=== PATIENT | female | born 1965 | race Caucasian/White ===

== ENCOUNTER 2020-01-26 18:38 | Inpatient (IN) | payer MEDICAID, OTHER ==
[~2020-01-26] VITALS: Ht 165.1 cm; Wt 77.1 kg
[2020-01-26 20:36] LABS: CHLORIDE 91 mEq/L (98-107)
[2020-01-26] MEDS ORDERED: SODIUM CHLORIDE 0.9% 1,000 ML IV ONE (21:00)
[2020-01-26 21:07] LABS: BASOPHILS % 0.4 % (0.0-2.0); EOSINOPHILS % 0.1 % (0.0-5.0); HEMATOCRIT. 51.4 % (36.0-48.0); HEMOGLOBIN. 18.1 g/dL (12.0-16.0); LYMPHOCYTES % 12.3 % (20.0-50.0); MEAN CORPUSCULAR HEMOGLOBIN 30.1 pg (28.0-32.0); MEAN CORPUSCULAR VOLUME 85.4 fL (81.0-99.0); MEAN PLATELET VOLUME 9.3 fl (7.4-10.4); MONOCYTES % 8.3 % (2.0-8.0); NEUTROPHILS % 78.9 % (40.0-76.0); PLATELET 193 x1000/uL (130-400); RED BLOOD CELL COUNT 6.02 mill/uL (4.2-5.4); RED CELL DISTRIBUTION WIDTH 15.6 % (11.6-14.6)
[2020-01-26 21:11] LABS: BG BASE EXCESS -7.8 mmol/L (-2.0-2.0); BG CARBOXYHEMOGLOBIN 0.3 % (0.5-1.5); BG DEOXYHEMOGLOBIN 8.6 % (0.0-5.0); BG FRACTION INSPIRED OXYGEN 21; BG HCO3 ACT 14.6 mmol/L (22.0-26.0); BG METHEMOGLOBIN 0.4 % (0.0-1.5); BG OXYGEN SATURATION 91.3 % (92.0-98.5); BG OXYHEMOGLOBIN 90.7 % (94.0-97.0); BG PCO2 24.9 mmHg (35.0-45.0); BG PH 7.385 (7.350-7.450); BG SAMPLE SITE RIGHT RADIAL; BG TOTAL HEMOGLOBIN 19.8 g/dL (12.0-18.0); BG VENT MODE ROOM AIR
[2020-01-26] MEDS ORDERED: AZITHROMYCIN 500 MG in DEXT 5% WATER 250 ML IV ONE (21:45)
[2020-01-27] VITALS (7 sets, daily range): BP systolic 103–164; BP diastolic 63–116
[2020-01-27] MEDS ORDERED: AMLO10TA80 PO (00:51)
[2020-01-27] MEDS ORDERED: FERR-71 PO (00:51)
[2020-01-27] MEDS ORDERED: GABA-531 PO (00:51)
[2020-01-27] MEDS ORDERED: AXIT5TAB PO (00:51)
[2020-01-27] MEDS ORDERED: ESOM20CA PO (00:51)
[2020-01-27] MEDS ORDERED: IPRATROPIUM/ALBUTEROL 0.5-3(2.5)MG/3ML NEB NEB PRN (02:15)
[2020-01-27] MEDS ORDERED: MAGNESIUM/ALUMINUM HYDROXIDE/SIMETHICONE 30ML UDC PO PRN (02:15)
[2020-01-27] MEDS ORDERED: MORPHINE SULFATE 2 MG/ML CPJ (NOT FOR IM USE) IV PRN (02:15)
[2020-01-27] MEDS ORDERED: HYDROCODONE/APAP 7.5/325MG 1 TAB TABLET PO PRN (02:15)
[2020-01-27] MEDS ORDERED: NA PHOS,M-B/NA PHOS,DI-BA ENEMA 118ML PR PRN (02:15)
[2020-01-27] MEDS ORDERED: DOCUSATE SODIUM 100MG CAPSULE PO PRN (02:15)
[2020-01-27] MEDS ORDERED: ONDANSETRON HCL 4MG/2ML INJ IV PRN (02:15)
[2020-01-27] MEDS ORDERED: DIPHENHYDRAMINE 50MG/ML VIAL IV PRN (02:15)
[2020-01-27] MEDS ORDERED: LORAZEPAM 2MG/ML CPJ IV PRN (02:15)
[2020-01-27] MEDS ORDERED: GUAIFENESIN 200MG/10ML SUGAR FREE UDC PO PRN (02:15)
[2020-01-27 03:12] LABS: CHLORIDE 93 mEq/L (98-107)
[2020-01-27] MEDS: ASPIRIN 81MG EC TABLET PO SCH (08:23)
[2020-01-27] MEDS: ENOXAPARIN 30MG/0.3ML SYR SUBCUT SCH ×2 (08:23→20:43)
[2020-01-27] MEDS ORDERED: ALBUTEROL 6.7GM HFA INHALER ORI SCH ×2 (09:00)
[2020-01-27 09:13] LABS: BG BASE EXCESS -9.2 mmol/L (-2.0-2.0); BG CARBOXYHEMOGLOBIN 0.2 % (0.5-1.5); BG DEOXYHEMOGLOBIN 3.9 % (0.0-5.0); BG FRACTION INSPIRED OXYGEN 99.8; BG METHEMOGLOBIN 0.6 % (0.0-1.5); BG OXYGEN SATURATION 96.1 % (92.0-98.5); BG OXYHEMOGLOBIN 95.3 % (94.0-97.0); BG PH 7.369 (7.350-7.450); BG PO2 80.6 mmHg (75.0-100.0); BG SAMPLE SITE RIGHT RADIAL; BG TOTAL HEMOGLOBIN 20.7 g/dL (12.0-18.0); BG VENT MODE MASK - NRB
[2020-01-27 12:51] LABS: D-DIMER 0.94 mg/L FEU (<0.50); INR 1.1; PROTHROMBIN TIME 11.3 sec (9.6-11.0)
[2020-01-27] MEDS: AMLODIPINE 10MG TABLET PO SCH (13:00)
[2020-01-27] MEDS: AZITHROMYCIN 500 MG in DEXT 5% WATER 250 ML IV SCH (23:25)
[2020-01-28] VITALS (67 sets, daily range): BP systolic 40–178; BP diastolic 13–121
[2020-01-28 06:33] LABS: BG BASE EXCESS -22.4 mmol/L (-2.0-2.0); BG CARBOXYHEMOGLOBIN 0.2 % (0.5-1.5); BG DEOXYHEMOGLOBIN 8.3 % (0.0-5.0); BG FRACTION INSPIRED OXYGEN 100; BG METHEMOGLOBIN 0.5 % (0.0-1.5); BG OXYGEN SATURATION 91.6 % (92.0-98.5); BG PCO2 32.5 mmHg (35.0-45.0); BG PH 7.007 (7.350-7.450); BG PO2 79.7 mmHg (75.0-100.0); BG SAMPLE SITE RIGHT RADIAL; BG TOTAL HEMOGLOBIN 21.1 g/dL (12.0-18.0); BG VENT MODE MASK - NRB
[2020-01-28] MEDS ORDERED: PROPOFOL 10MG/ML 100ML 100 ML IV PRN (07:23)
[2020-01-28 07:41] LABS: BASOPHILS % 0.4 % (0.0-2.0); HEMATOCRIT. 54.1 % (36.0-48.0); HEMOGLOBIN. 17.7 g/dL (12.0-16.0); LYMPHOCYTES % 10.7 % (20.0-50.0); MEAN CORPUSCULAR HEMOGLOBIN 29.2 pg (28.0-32.0); MEAN PLATELET VOLUME 9.8 fl (7.4-10.4); MONOCYTES % 5.2 % (2.0-8.0); NEUTROPHILS % 83.7 % (40.0-76.0); PLATELET 319 x1000/uL (130-400); RED BLOOD CELL COUNT 6.08 mill/uL (4.2-5.4); RED CELL DISTRIBUTION WIDTH 16.4 % (11.6-14.6)
[2020-01-28 07:50] LABS: CHLORIDE 86 mEq/L (98-107)
[2020-01-28 07:58] LABS: HDL CHOLESTEROL 36 mg/dL (40-59); LDL CHOLESTEROL 118 mg/dL (5-100)
[2020-01-28] MEDS ORDERED: DEXTROSE 50% WATER 50ML SYRINGE IV NR (08:30)
[2020-01-28] MEDS ORDERED: SODIUM BICARBONATE 8.4% 1 MEQ/ML 50ML SYR IV NR ×3 (08:30→14:00)
[2020-01-28] MEDS ORDERED: INSULIN REGULAR (HUMULIN R) 300UNITS/3ML IV NR (08:32)
[2020-01-28] MEDS: AMLODIPINE 10MG TABLET PO SCH (08:56)
[2020-01-28] MEDS: NOREPINEPHRINE 8 MG in DEXT 5% WATER 242 ML IV PRN ×2 (08:58→13:45)
[2020-01-28] MEDS ORDERED: SODIUM CHLORIDE 3% 500 ML IV NR (09:00)
[2020-01-28] MEDS: ASPIRIN 81MG EC TABLET PO SCH (09:01)
[2020-01-28] MEDS: ENOXAPARIN 30MG/0.3ML SYR SUBCUT SCH (09:02)
[2020-01-28 09:30] LABS: BG BASE EXCESS -7.4 mmol/L (-2.0-2.0); BG CARBOXYHEMOGLOBIN 0.3 % (0.5-1.5); BG DEOXYHEMOGLOBIN 1.8 % (0.0-5.0); BG FRACTION INSPIRED OXYGEN 100; BG HCO3 ACT 19.3 mmol/L (22.0-26.0); BG METHEMOGLOBIN 0.5 % (0.0-1.5); BG OXYGEN SATURATION 98.2 % (92.0-98.5); BG OXYHEMOGLOBIN 97.4 % (94.0-97.0); BG PCO2 43.1 mmHg (35.0-45.0); BG PH 7.268 (7.350-7.450); BG PO2 130.7 mmHg (75.0-100.0); BG SAMPLE SITE RIGHT RADIAL; BG TIDAL VOLUME(mL) 500 mL; BG TOTAL HEMOGLOBIN 15.9 g/dL (12.0-18.0); BG VENT MODE VENT - A/C; BG VENT RATE 16 set
[2020-01-28] MEDS ORDERED: ENOXAPARIN 60MG/0.6ML SYR SUBCUT NR (09:45)
[2020-01-28 10:06] LABS: CLARITY URINE CLOUDY (CLEAR); COLOR URINE DARK YELLOW (YELLOW); KETONES URINE TRACE (NEGATIVE); LEUKOCYTE ESTERASE URINE TRACE (NEGATIVE); NITRITE URINE NEGATIVE (NEGATIVE); OCCULT BLOOD URINE 3+ (NEGATIVE); PROTEIN URINE 2+ (NEGATIVE); SPECIFIC GRAVITY URINE 1.019 (1.005-1.030)
[2020-01-28] MEDS: DEXAMETHASONE 10 MG/ML VIAL IV SCH (10:34)
[2020-01-28] MEDS: FENTANYL CITRATE/PF 1,000 MCG in SODIUM CHLORIDE 0.9% 80 ML IV PRN ×2 (10:38→18:20)
[2020-01-28] MEDS: MIDAZOLAM HCL 100 MG in DEXT 5% WATER 80 ML IV PRN ×2 (10:39→18:19)
[2020-01-28] MEDS ORDERED: SODIUM CHLORIDE 0.9% 1,000 ML IV SCH (11:00)
[2020-01-28] MEDS ORDERED: PHENYLEPHRINE 40 MG in DEXT 5% WATER 246 ML IV PRN (11:30)
[2020-01-28 12:33] LABS: HEPATITIS B SURFACE ANTIGEN NEGATIVE
[2020-01-28 13:02] LABS: HEPATITIS A AB IGM NEGATIVE (NEGATIVE)
[2020-01-28] MEDS: VASOPRESSIN 10 UNIT in SODIUM CHLORIDE 0.9% 99.5 ML IV PRN ×3 (13:44→23:19)
[2020-01-28] MEDS ORDERED: ALBUMIN HUMAN 25GM/100ML (25%) IV NR (14:00)
[2020-01-28] MEDS ORDERED: SODIUM POLYSTYRENE SULFONATE 15 G/60 ML BOT PO NR (14:00)
[2020-01-28] MEDS ORDERED: SODIUM BICARBONATE 8.4% 1 MEQ/ML 50ML SYR IV ONE (14:00)
[2020-01-28] MEDS ORDERED: VASOPRESSIN 10 UNIT in SODIUM CHLORIDE 0.9% 99.5 ML IV PRN (14:00)
[2020-01-28] MEDS ORDERED: NOREPINEPHRINE 32 MG in DEXT 5% WATER 468 ML IV PRN (14:15)
[2020-01-28] MEDS: IPRATROPIUM/ALBUTEROL 0.5-3(2.5)MG/3ML NEB HHN SCH ×2 (14:50→20:40)
[2020-01-28] MEDS: PHENYLEPHRINE 80 MG in DEXT 5% WATER 492 ML IV PRN ×2 (16:07→23:21)
[2020-01-28 18:44] LABS: *AMPHETAMINES SCREEN URINE NEGATIVE (NEGATIVE); *BARBITURATES SCREEN URINE NEGATIVE (NEGATIVE); *BENZODIAZEPINES SCREEN URINE NEGATIVE (NEGATIVE); *COCAINE SCREEN URINE NEGATIVE (NEGATIVE); CANNABINOID URINE SCREEN NEGATIVE (NEGATIVE); METHADONE URINE SCREEN NEGATIVE (NEGATIVE); OPIATES URINE SCREEN PRESUMTIVE POSITIVE (NEGATIVE); PHENCYCLIDINE URINE SCREEN NEGATIVE (NEGATIVE)
[2020-01-28 18:48] LABS: SODIUM URINE RANDOM < 5 mEq/L
[2020-01-28] MEDS: ENOXAPARIN 100MG/ML SYR SUBCUT SCH (20:59)
[2020-01-28] MEDS: AZITHROMYCIN 500 MG in DEXT 5% WATER 250 ML IV SCH (23:00)
[2020-01-29] VITALS (76 sets, daily range): BP systolic 90–146; BP diastolic 59–104
[2020-01-29] MEDS: IPRATROPIUM/ALBUTEROL 0.5-3(2.5)MG/3ML NEB HHN SCH ×3 (04:37→16:20)
[2020-01-29] MEDS: VASOPRESSIN 10 UNIT in SODIUM CHLORIDE 0.9% 99.5 ML IV PRN ×2 (05:07→10:59)
[2020-01-29 05:25] LABS: BASOPHILS % 0.3 % (0.0-2.0); EOSINOPHILS % 0.1 % (0.0-5.0); HEMATOCRIT. 48.4 % (36.0-48.0); HEMOGLOBIN. 16.5 g/dL (12.0-16.0); LYMPHOCYTES % 9.5 % (20.0-50.0); MEAN CORPUSCULAR HEMOGLOBIN 29.1 pg (28.0-32.0); MEAN CORPUSCULAR VOLUME 85.2 fL (81.0-99.0); MEAN PLATELET VOLUME 9.6 fl (7.4-10.4); MONOCYTES % 3.2 % (2.0-8.0); NEUTROPHILS % 86.9 % (40.0-76.0); PLATELET 272 x1000/uL (130-400); RED BLOOD CELL COUNT 5.68 mill/uL (4.2-5.4); RED CELL DISTRIBUTION WIDTH 16.2 % (11.6-14.6)
[2020-01-29 05:26] LABS: CHLORIDE 94 mEq/L (98-107)
[2020-01-29 05:33] LABS: PHOSPHORUS 2.8 mg/dL (2.5-4.9)
[2020-01-29] MEDS: PHENYLEPHRINE 80 MG in DEXT 5% WATER 492 ML IV PRN (07:50)
[2020-01-29 08:58] LABS: BG BASE EXCESS 1.8 mmol/L (-2.0-2.0); BG CARBOXYHEMOGLOBIN 0.3 % (0.5-1.5); BG DEOXYHEMOGLOBIN 6.6 % (0.0-5.0); BG FRACTION INSPIRED OXYGEN 100; BG HCO3 ACT 23.4 mmol/L (22.0-26.0); BG METHEMOGLOBIN 0.2 % (0.0-1.5); BG OXYGEN SATURATION 93.4 % (92.0-98.5); BG OXYHEMOGLOBIN 92.9 % (94.0-97.0); BG PCO2 29.3 mmHg (35.0-45.0); BG PO2 65.4 mmHg (75.0-100.0); BG SAMPLE SITE RIGHT RADIAL; BG TIDAL VOLUME(mL) 500 mL; BG TOTAL HEMOGLOBIN 16.9 g/dL (12.0-18.0); BG VENT MODE PRVC; BG VENT RATE 24 set
[2020-01-29] MEDS ORDERED: ALBUMIN HUMAN 25GM/100ML (25%) IV SCH (09:00)
[2020-01-29] MEDS ORDERED: NOREPINEPHRINE 32 MG in SODIUM CHLORIDE 0.9% 468 ML IV PRN (09:00)
[2020-01-29] MEDS: AMLODIPINE 10MG TABLET PO SCH (09:00)
[2020-01-29] MEDS: SODIUM CHLORIDE 0.9% 1,000 ML IV SCH (09:08)
[2020-01-29] MEDS: ENOXAPARIN 100MG/ML SYR SUBCUT SCH ×2 (09:09→21:27)
[2020-01-29] MEDS: PANTOPRAZOLE SODIUM 40 MG/VIAL IV SCH (09:19)
[2020-01-29] MEDS: DEXAMETHASONE 10 MG/ML VIAL IV SCH (09:25)
[2020-01-29] MEDS: MEROPENEM 1,000 MG in SODIUM CHLORIDE 0.9% 100 ML IV SCH (11:21)
[2020-01-29] MEDS: PHENYLEPHRINE 80 MG in SODIUM CHLORIDE 0.9% 492 ML IV PRN (15:04)
[2020-01-29] MEDS: FENTANYL CITRATE/PF 1,000 MCG in SODIUM CHLORIDE 0.9% 80 ML IV PRN (16:12)
[2020-01-29] MEDS: MIDAZOLAM HCL 100 MG in DEXT 5% WATER 80 ML IV PRN (16:13)
[2020-01-29] MEDS: AZITHROMYCIN 500 MG in DEXT 5% WATER 250 ML IV SCH (23:11)
[2020-01-30] VITALS (82 sets, daily range): BP systolic 99–118; BP diastolic 57–70
[2020-01-30] MEDS: IPRATROPIUM/ALBUTEROL 0.5-3(2.5)MG/3ML NEB HHN SCH ×4 (00:13→20:05)
[2020-01-30] MEDS: MEROPENEM 1,000 MG in SODIUM CHLORIDE 0.9% 100 ML IV SCH ×3 (02:27→18:00)
[2020-01-30] MEDS: PHENYLEPHRINE 80 MG in SODIUM CHLORIDE 0.9% 492 ML IV PRN (03:29)
[2020-01-30] MEDS: SODIUM CHLORIDE 0.9% 1,000 ML IV SCH (04:50)
[2020-01-30 05:50] LABS: BASOPHILS % 0.1 % (0.0-2.0); HEMATOCRIT. 38.3 % (36.0-48.0); HEMOGLOBIN. 12.7 g/dL (12.0-16.0); LYMPHOCYTES % 7.9 % (20.0-50.0); MEAN CORPUSCULAR HEMOGLOBIN 28.5 pg (28.0-32.0); MEAN CORPUSCULAR VOLUME 86.1 fL (81.0-99.0); MEAN PLATELET VOLUME 9.5 fl (7.4-10.4); MONOCYTES % 3.6 % (2.0-8.0); NEUTROPHILS % 88.4 % (40.0-76.0); PLATELET 248 x1000/uL (130-400); RED BLOOD CELL COUNT 4.45 mill/uL (4.2-5.4)
[2020-01-30 05:59] LABS: CHLORIDE 99 mEq/L (98-107)
[2020-01-30 06:10] LABS: PHOSPHORUS 2.2 mg/dL (2.5-4.9)
[2020-01-30] MEDS: AMLODIPINE 10MG TABLET PO SCH (09:00)
[2020-01-30 09:20] LABS: BG BASE EXCESS 0.7 mmol/L (-2.0-2.0); BG CARBOXYHEMOGLOBIN 0.1 % (0.5-1.5); BG DEOXYHEMOGLOBIN 4.2 % (0.0-5.0); BG FRACTION INSPIRED OXYGEN 70; BG HCO3 ACT 23.2 mmol/L (22.0-26.0); BG METHEMOGLOBIN 0.4 % (0.0-1.5); BG OXYGEN SATURATION 95.8 % (92.0-98.5); BG OXYHEMOGLOBIN 95.3 % (94.0-97.0); BG PCO2 30.9 mmHg (35.0-45.0); BG PH 7.493 (7.350-7.450); BG PO2 78.7 mmHg (75.0-100.0); BG SAMPLE SITE RIGHT RADIAL; BG TIDAL VOLUME(mL) 500 mL; BG TOTAL HEMOGLOBIN 13.4 g/dL (12.0-18.0); BG VENT MODE VENT- PRVC; BG VENT RATE 18 set
[2020-01-30] MEDS ORDERED: ALBUMIN HUMAN 25GM/100ML (25%) IV NR (11:45)
[2020-01-30] MEDS: DEXAMETHASONE 10 MG/ML VIAL IV SCH (12:00)
[2020-01-30] MEDS: ENOXAPARIN 100MG/ML SYR SUBCUT SCH ×2 (12:00→20:52)
[2020-01-30] MEDS: PANTOPRAZOLE SODIUM 40 MG/VIAL IV SCH (12:00)
[2020-01-30] MEDS ORDERED: SODIUM PHOS,M-BASIC-D-BASIC 15 MM in DEXT 5% WATER 245 ML IV NR (12:30)
[2020-01-30] MEDS: AZITHROMYCIN 500 MG in DEXT 5% WATER 250 ML IV SCH (23:43)
[2020-01-31] VITALS (65 sets, daily range): BP systolic 96–140; BP diastolic 50–87
[2020-01-31] MEDS: IPRATROPIUM/ALBUTEROL 0.5-3(2.5)MG/3ML NEB HHN SCH ×4 (00:13→20:52)
[2020-01-31] MEDS: SODIUM CHLORIDE 0.9% 1,000 ML IV SCH (01:37)
[2020-01-31] MEDS: MEROPENEM 1,000 MG in SODIUM CHLORIDE 0.9% 100 ML IV SCH ×3 (01:37→17:09)
[2020-01-31 05:45] LABS: HEMATOCRIT. 35.4 % (36.0-48.0); HEMOGLOBIN. 11.8 g/dL (12.0-16.0); MEAN CORPUSCULAR HEMOGLOBIN 29.2 pg (28.0-32.0); MEAN CORPUSCULAR VOLUME 87.7 fL (81.0-99.0); MEAN PLATELET VOLUME 9.3 fl (7.4-10.4); PLATELET 205 x1000/uL (130-400); RED BLOOD CELL COUNT 4.03 mill/uL (4.2-5.4); RED CELL DISTRIBUTION WIDTH 15.7 % (11.6-14.6)
[2020-01-31 05:51] LABS: CHLORIDE 103 mEq/L (98-107)
[2020-01-31 06:03] LABS: PHOSPHORUS 2.8 mg/dL (2.5-4.9)
[2020-01-31] MEDS: AMLODIPINE 10MG TABLET PO SCH (09:00)
[2020-01-31] MEDS: DEXAMETHASONE 10 MG/ML VIAL IV SCH (09:08)
[2020-01-31] MEDS: PANTOPRAZOLE SODIUM 40 MG/VIAL IV SCH (09:08)
[2020-01-31] MEDS: ENOXAPARIN 100MG/ML SYR SUBCUT SCH ×2 (09:08→20:52)
[2020-01-31] MEDS: FENTANYL CITRATE/PF 1,000 MCG in SODIUM CHLORIDE 0.9% 80 ML IV PRN (09:41)
[2020-01-31 11:00] LABS: BG BASE EXCESS 1.8 mmol/L (-2.0-2.0); BG CARBOXYHEMOGLOBIN 0.3 % (0.5-1.5); BG DEOXYHEMOGLOBIN 10.3 % (0.0-5.0); BG FRACTION INSPIRED OXYGEN 60; BG HCO3 ACT 25.1 mmol/L (22.0-26.0); BG METHEMOGLOBIN 0.2 % (0.0-1.5); BG OXYGEN SATURATION 89.6 % (92.0-98.5); BG OXYHEMOGLOBIN 89.2 % (94.0-97.0); BG PCO2 35.2 mmHg (35.0-45.0); BG PH 7.471 (7.350-7.450); BG PO2 56.2 mmHg (75.0-100.0); BG SAMPLE SITE RIGHT RADIAL; BG TIDAL VOLUME(mL) 500 mL; BG TOTAL HEMOGLOBIN 12.6 g/dL (12.0-18.0); BG VENT MODE VENT - PRVC; BG VENT RATE 14 set
[2020-01-31 11:08] LABS: NUCLEATED RED BLOOD CELLS 3 /100 WBC; PLATELET ESTIMATE NORMAL
[2020-02-01] VITALS (95 sets, daily range): BP systolic 99–123; BP diastolic 55–69
[2020-02-01] MEDS: IPRATROPIUM/ALBUTEROL 0.5-3(2.5)MG/3ML NEB HHN SCH ×4 (01:39→20:20)
[2020-02-01] MEDS: MEROPENEM 1,000 MG in SODIUM CHLORIDE 0.9% 100 ML IV SCH ×3 (01:54→18:36)
[2020-02-01 05:51] LABS: CHLORIDE 107 mEq/L (98-107)
[2020-02-01 05:55] LABS: HEMATOCRIT. 33.6 % (36.0-48.0); HEMOGLOBIN. 11.2 g/dL (12.0-16.0); MEAN CORPUSCULAR HEMOGLOBIN 29.3 pg (28.0-32.0); MEAN CORPUSCULAR VOLUME 87.9 fL (81.0-99.0); PLATELET 201 x1000/uL (130-400); RED BLOOD CELL COUNT 3.82 mill/uL (4.2-5.4); RED CELL DISTRIBUTION WIDTH 16.5 % (11.6-14.6)
[2020-02-01 05:59] LABS: PHOSPHORUS 2.3 mg/dL (2.5-4.9)
[2020-02-01] MEDS: MIDAZOLAM HCL 100 MG in DEXT 5% WATER 80 ML IV PRN ×2 (06:11→16:34)
[2020-02-01] MEDS: PANTOPRAZOLE SODIUM 40 MG/VIAL IV SCH (08:34)
[2020-02-01] MEDS: DEXAMETHASONE 10 MG/ML VIAL IV SCH (08:35)
[2020-02-01] MEDS: AMLODIPINE 10MG TABLET PO SCH (08:35)
[2020-02-01] MEDS: ENOXAPARIN 100MG/ML SYR SUBCUT SCH ×2 (09:00→21:00)
[2020-02-01 09:45] LABS: NUCLEATED RED BLOOD CELLS 1 /100 WBC; PLATELET ESTIMATE NORMAL
[2020-02-01 09:50] LABS: BG BASE EXCESS 1.1 mmol/L (-2.0-2.0); BG CARBOXYHEMOGLOBIN 0.3 % (0.5-1.5); BG DEOXYHEMOGLOBIN 9.3 % (0.0-5.0); BG FRACTION INSPIRED OXYGEN 70; BG HCO3 ACT 23.9 mmol/L (22.0-26.0); BG METHEMOGLOBIN 0.3 % (0.0-1.5); BG OXYGEN SATURATION 90.6 % (92.0-98.5); BG OXYHEMOGLOBIN 90.1 % (94.0-97.0); BG PCO2 32.2 mmHg (35.0-45.0); BG PH 7.489 (7.350-7.450); BG PO2 58.6 mmHg (75.0-100.0); BG SAMPLE SITE RIGHT RADIAL; BG TIDAL VOLUME(mL) 500 mL; BG TOTAL HEMOGLOBIN 12.2 g/dL (12.0-18.0); BG VENT MODE VENT - A/C PRVC; BG VENT RATE 14 set
[2020-02-01] MEDS ORDERED: SODIUM PHOS,M-BASIC-D-BASIC 15 MM in DEXT 5% WATER 245 ML IV NR (10:00)
[2020-02-01] MEDS: FENTANYL CITRATE/PF 1,000 MCG in SODIUM CHLORIDE 0.9% 80 ML IV PRN (16:37)
[2020-02-02] VITALS (96 sets, daily range): BP systolic 100–128; BP diastolic 54–87
[2020-02-02] MEDS: IPRATROPIUM/ALBUTEROL 0.5-3(2.5)MG/3ML NEB HHN SCH ×4 (00:30→19:45)
[2020-02-02] MEDS: MEROPENEM 1,000 MG in SODIUM CHLORIDE 0.9% 100 ML IV SCH ×3 (01:45→18:13)
[2020-02-02 05:55] LABS: CHLORIDE 111 mEq/L (98-107)
[2020-02-02 05:59] LABS: HEMATOCRIT. 31.5 % (36.0-48.0); HEMOGLOBIN. 10.4 g/dL (12.0-16.0); MEAN CORPUSCULAR HEMOGLOBIN 29.5 pg (28.0-32.0); PLATELET 188 x1000/uL (130-400); RED BLOOD CELL COUNT 3.54 mill/uL (4.2-5.4); RED CELL DISTRIBUTION WIDTH 16.8 % (11.6-14.6)
[2020-02-02 06:03] LABS: C REACTIVE PROTEIN QUANT 7.1 mg/L (0.0-3.0); PHOSPHORUS 2.7 mg/dL (2.5-4.9)
[2020-02-02 08:04] LABS: BG BASE EXCESS 6.1 mmol/L (-2.0-2.0); BG CARBOXYHEMOGLOBIN 0.3 % (0.5-1.5); BG DEOXYHEMOGLOBIN 7.3 % (0.0-5.0); BG FRACTION INSPIRED OXYGEN 70; BG HCO3 ACT 29.9 mmol/L (22.0-26.0); BG METHEMOGLOBIN 0.4 % (0.0-1.5); BG OXYGEN SATURATION 92.6 % (92.0-98.5); BG PH 7.491 (7.350-7.450); BG PO2 66.2 mmHg (75.0-100.0); BG SAMPLE SITE RIGHT RADIAL; BG TIDAL VOLUME(mL) 500 mL; BG TOTAL HEMOGLOBIN 11.2 g/dL (12.0-18.0); BG VENT MODE VENT- PRVC; BG VENT RATE 12 set
[2020-02-02] MEDS: DEXAMETHASONE 10 MG/ML VIAL IV SCH (08:52)
[2020-02-02] MEDS: PANTOPRAZOLE SODIUM 40 MG/VIAL IV SCH (08:52)
[2020-02-02] MEDS: ENOXAPARIN 100MG/ML SYR SUBCUT SCH (08:53)
[2020-02-02] MEDS: AMLODIPINE 10MG TABLET PO SCH (08:53)
[2020-02-02] MEDS: MIDAZOLAM HCL 100 MG in DEXT 5% WATER 80 ML IV PRN (10:47)
[2020-02-02] MEDS: FENTANYL CITRATE/PF 1,000 MCG in SODIUM CHLORIDE 0.9% 80 ML IV PRN (10:49)
[2020-02-02 12:01] LABS: NUCLEATED RED BLOOD CELLS 1 /100 WBC; PLATELET ESTIMATE NORMAL
[2020-02-02] MEDS ORDERED: ENOXAPARIN 40MG/0.4ML SYR SUBCUT SCH (21:00)
[2020-02-03] VITALS (94 sets, daily range): BP systolic 103–126; BP diastolic 56–93
[2020-02-03] MEDS: MEROPENEM 1,000 MG in SODIUM CHLORIDE 0.9% 100 ML IV SCH ×3 (01:33→17:42)
[2020-02-03] MEDS: IPRATROPIUM/ALBUTEROL 0.5-3(2.5)MG/3ML NEB HHN SCH ×5 (05:10→21:00)
[2020-02-03 05:21] LABS: CHLORIDE 115 mEq/L (98-107)
[2020-02-03 05:24] LABS: BASOPHILS % 0.1 % (0.0-2.0); HEMATOCRIT. 30.4 % (36.0-48.0); HEMOGLOBIN. 9.8 g/dL (12.0-16.0); LYMPHOCYTES % 7.2 % (20.0-50.0); MEAN CORPUSCULAR HEMOGLOBIN 29.1 pg (28.0-32.0); MEAN PLATELET VOLUME 9.6 fl (7.4-10.4); MONOCYTES % 5.1 % (2.0-8.0); NEUTROPHILS % 87.6 % (40.0-76.0); PLATELET 172 x1000/uL (130-400); RED BLOOD CELL COUNT 3.38 mill/uL (4.2-5.4); RED CELL DISTRIBUTION WIDTH 16.8 % (11.6-14.6)
[2020-02-03 05:28] LABS: PHOSPHORUS 1.9 mg/dL (2.5-4.9)
[2020-02-03 08:48] LABS: BG BASE EXCESS 5.3 mmol/L (-2.0-2.0); BG CARBOXYHEMOGLOBIN 0.3 % (0.5-1.5); BG DEOXYHEMOGLOBIN 5.9 % (0.0-5.0); BG FRACTION INSPIRED OXYGEN 70; BG HCO3 ACT 29.2 mmol/L (22.0-26.0); BG METHEMOGLOBIN 0.3 % (0.0-1.5); BG OXYGEN SATURATION 94.1 % (92.0-98.5); BG OXYHEMOGLOBIN 93.5 % (94.0-97.0); BG PCO2 40.1 mmHg (35.0-45.0); BG PO2 69.8 mmHg (75.0-100.0); BG SAMPLE SITE RIGHT RADIAL; BG TIDAL VOLUME(mL) 500 mL; BG TOTAL HEMOGLOBIN 10.2 g/dL (12.0-18.0); BG VENT MODE VENT- PRVC; BG VENT RATE 12 set
[2020-02-03] MEDS: AMLODIPINE 10MG TABLET PO SCH (09:00)
[2020-02-03] MEDS: DOCUSATE SODIUM SUGAR FREE 100MG/10ML UDC NG SCH (09:26)
[2020-02-03] MEDS: PANTOPRAZOLE SODIUM 40 MG/VIAL IV SCH (09:27)
[2020-02-03] MEDS: MIDAZOLAM HCL 100 MG in DEXT 5% WATER 80 ML IV PRN (09:28)
[2020-02-03] MEDS: DEXAMETHASONE 10 MG/ML VIAL IV SCH (09:30)
[2020-02-03] MEDS ORDERED: POTASSIUM PHOS,M-BASIC-D-BASIC 15 MMOL in DEXT 5% WATER 250 ML IV SCH (10:00)
[2020-02-03] MEDS ORDERED: ENOXAPARIN 100MG/ML SYR SUBCUT SCH (13:30)
[2020-02-03] MEDS ORDERED: LACTULOSE 20G/30ML UDC PO PRN (17:30)
[2020-02-03] MEDS ORDERED: LACTULOSE 20G/30ML UDC PO NR (17:30)
[2020-02-03] MEDS ORDERED: FOLIC ACID 1MG TABLET PO NR (17:30)
[2020-02-03] MEDS: FENTANYL CITRATE/PF 1,000 MCG in SODIUM CHLORIDE 0.9% 80 ML IV PRN (17:41)
[2020-02-03] MEDS: THIAMINE HCL 100MG TABLET PO SCH (17:42)
[2020-02-03] MEDS: ENOXAPARIN 40MG/0.4ML SYR SUBCUT SCH (21:00)
[2020-02-03] MEDS: ACETAMINOPHEN 325MG TABLET PO PRN (23:34)
[2020-02-04] VITALS (84 sets, daily range): BP systolic 95–145; BP diastolic 52–80
[2020-02-04] MEDS: IPRATROPIUM/ALBUTEROL 0.5-3(2.5)MG/3ML NEB HHN SCH ×4 (02:55→21:06)
[2020-02-04 05:45] LABS: BASOPHILS % 0.2 % (0.0-2.0); EOSINOPHILS % 0.2 % (0.0-5.0); HEMATOCRIT. 28.9 % (36.0-48.0); HEMOGLOBIN. 9.3 g/dL (12.0-16.0); LYMPHOCYTES % 9.4 % (20.0-50.0); MEAN CORPUSCULAR HEMOGLOBIN 29.3 pg (28.0-32.0); MEAN CORPUSCULAR VOLUME 91.2 fL (81.0-99.0); MEAN PLATELET VOLUME 9.2 fl (7.4-10.4); MONOCYTES % 5.4 % (2.0-8.0); NEUTROPHILS % 84.8 % (40.0-76.0); PLATELET 167 x1000/uL (130-400); RED BLOOD CELL COUNT 3.16 mill/uL (4.2-5.4); RED CELL DISTRIBUTION WIDTH 17.2 % (11.6-14.6)
[2020-02-04 05:48] LABS: CHLORIDE 117 mEq/L (98-107)
[2020-02-04 05:56] LABS: PHOSPHORUS 2.6 mg/dL (2.5-4.9)
[2020-02-04] MEDS: AMLODIPINE 10MG TABLET PO SCH (08:45)
[2020-02-04] MEDS: FOLIC ACID 1MG TABLET PO SCH (09:00)
[2020-02-04] MEDS: PANTOPRAZOLE SODIUM 40 MG/VIAL IV SCH (09:27)
[2020-02-04] MEDS: DEXAMETHASONE 10 MG/ML VIAL IV SCH (09:27)
[2020-02-04] MEDS: DOCUSATE SODIUM SUGAR FREE 100MG/10ML UDC NG SCH (09:27)
[2020-02-04] MEDS: THIAMINE HCL 100MG TABLET PO SCH (09:27)
[2020-02-04 09:28] LABS: BG BASE EXCESS 5.7 mmol/L (-2.0-2.0); BG CARBOXYHEMOGLOBIN 0.2 % (0.5-1.5); BG DEOXYHEMOGLOBIN 4.2 % (0.0-5.0); BG FRACTION INSPIRED OXYGEN 70; BG HCO3 ACT 30.4 mmol/L (22.0-26.0); BG METHEMOGLOBIN 0.3 % (0.0-1.5); BG OXYGEN SATURATION 95.8 % (92.0-98.5); BG OXYHEMOGLOBIN 95.3 % (94.0-97.0); BG PCO2 44.7 mmHg (35.0-45.0); BG PO2 82.8 mmHg (75.0-100.0); BG SAMPLE SITE RIGHT RADIAL; BG TIDAL VOLUME(mL) 500 mL; BG TOTAL HEMOGLOBIN 9.9 g/dL (12.0-18.0); BG VENT MODE VENT - A/C-PRVC; BG VENT RATE 12 set
[2020-02-04] MEDS: MIDAZOLAM HCL 100 MG in DEXT 5% WATER 80 ML IV PRN (13:19)
[2020-02-04] MEDS: FENTANYL CITRATE/PF 1,000 MCG in SODIUM CHLORIDE 0.9% 80 ML IV PRN (13:21)
[2020-02-04] MEDS: DEXTROSE 5% WATER 1,000 ML IV SCH (19:45)
[2020-02-04] MEDS: ENOXAPARIN 40MG/0.4ML SYR SUBCUT SCH (20:50)
[2020-02-04] MEDS: MICONAZOLE NITRATE 2% OINT 71GM TOP SCH (20:58)
[2020-02-05] VITALS (96 sets, daily range): BP systolic 84–149; BP diastolic 45–83
[2020-02-05] MEDS: IPRATROPIUM/ALBUTEROL 0.5-3(2.5)MG/3ML NEB HHN SCH ×4 (01:50→21:14)
[2020-02-05 06:02] LABS: BASOPHILS % 0.3 % (0.0-2.0); HEMATOCRIT. 33.6 % (36.0-48.0); HEMOGLOBIN. 10.7 g/dL (12.0-16.0); LYMPHOCYTES % 11.4 % (20.0-50.0); MEAN CORPUSCULAR HEMOGLOBIN 29.7 pg (28.0-32.0); MEAN CORPUSCULAR VOLUME 92.9 fL (81.0-99.0); MEAN PLATELET VOLUME 9.7 fl (7.4-10.4); MONOCYTES % 2.8 % (2.0-8.0); NEUTROPHILS % 81.5 % (40.0-76.0); PLATELET 154 x1000/uL (130-400); RED BLOOD CELL COUNT 3.62 mill/uL (4.2-5.4); RED CELL DISTRIBUTION WIDTH 17.4 % (11.6-14.6)
[2020-02-05 06:10] LABS: CHLORIDE 116 mEq/L (98-107)
[2020-02-05 06:23] LABS: PHOSPHORUS 3.3 mg/dL (2.5-4.9)
[2020-02-05] MEDS: PANTOPRAZOLE SODIUM 40 MG/VIAL IV SCH (08:14)
[2020-02-05] MEDS: DOCUSATE SODIUM SUGAR FREE 100MG/10ML UDC NG SCH (08:15)
[2020-02-05] MEDS: THIAMINE HCL 100MG TABLET PO SCH (08:15)
[2020-02-05] MEDS: ACETAMINOPHEN 325MG TABLET PO PRN (08:15)
[2020-02-05] MEDS: FOLIC ACID 1MG TABLET PO SCH (08:15)
[2020-02-05] MEDS: DEXAMETHASONE 10 MG/ML VIAL IV SCH (08:15)
[2020-02-05] MEDS: MIDAZOLAM HCL 100 MG in DEXT 5% WATER 80 ML IV PRN (08:16)
[2020-02-05] MEDS: FENTANYL CITRATE/PF 1,000 MCG in SODIUM CHLORIDE 0.9% 80 ML IV PRN (08:17)
[2020-02-05] MEDS: AMLODIPINE 10MG TABLET PO SCH (08:17)
[2020-02-05] MEDS: DEXTROSE 5% WATER 1,000 ML IV SCH ×2 (08:19→22:51)
[2020-02-05] MEDS: MICONAZOLE NITRATE 2% OINT 71GM TOP SCH ×2 (08:19→20:14)
[2020-02-05 09:16] LABS: BG BASE EXCESS 3.2 mmol/L (-2.0-2.0); BG CARBOXYHEMOGLOBIN 0.2 % (0.5-1.5); BG DEOXYHEMOGLOBIN 4.3 % (0.0-5.0); BG FRACTION INSPIRED OXYGEN 70; BG METHEMOGLOBIN 0.3 % (0.0-1.5); BG OXYGEN SATURATION 95.7 % (92.0-98.5); BG OXYHEMOGLOBIN 95.2 % (94.0-97.0); BG PCO2 38.3 mmHg (35.0-45.0); BG PH 7.466 (7.350-7.450); BG PO2 76.5 mmHg (75.0-100.0); BG SAMPLE SITE RIGHT RADIAL; BG TIDAL VOLUME(mL) 500 mL; BG TOTAL HEMOGLOBIN 10.7 g/dL (12.0-18.0); BG VENT MODE VENT - A/C; BG VENT RATE 12 set
[2020-02-05] MEDS: ENOXAPARIN 40MG/0.4ML SYR SUBCUT SCH (20:13)
[2020-02-06] VITALS (94 sets, daily range): BP systolic 98–157; BP diastolic 51–90
[2020-02-06] MEDS: MIDAZOLAM HCL 100 MG in DEXT 5% WATER 80 ML IV PRN (01:47)
[2020-02-06] MEDS: FENTANYL CITRATE/PF 1,000 MCG in SODIUM CHLORIDE 0.9% 80 ML IV PRN (02:23)
[2020-02-06] MEDS: IPRATROPIUM/ALBUTEROL 0.5-3(2.5)MG/3ML NEB HHN SCH ×3 (02:31→20:05)
[2020-02-06 05:52] LABS: BASOPHILS % 0.2 % (0.0-2.0); EOSINOPHILS % 0.4 % (0.0-5.0); HEMATOCRIT. 27.2 % (36.0-48.0); HEMOGLOBIN. 8.9 g/dL (12.0-16.0); MEAN CORPUSCULAR VOLUME 91.3 fL (81.0-99.0); MEAN PLATELET VOLUME 9.4 fl (7.4-10.4); MONOCYTES % 4.2 % (2.0-8.0); NEUTROPHILS % 84.2 % (40.0-76.0); PLATELET 141 x1000/uL (130-400); RED BLOOD CELL COUNT 2.98 mill/uL (4.2-5.4); RED CELL DISTRIBUTION WIDTH 16.7 % (11.6-14.6)
[2020-02-06 06:29] LABS: CHLORIDE 110 mEq/L (98-107)
[2020-02-06 06:41] LABS: PHOSPHORUS 3.9 mg/dL (2.5-4.9)
[2020-02-06] MEDS: THIAMINE HCL 100MG TABLET PO SCH (09:29)
[2020-02-06] MEDS: PANTOPRAZOLE SODIUM 40 MG/VIAL IV SCH (09:29)
[2020-02-06] MEDS: FOLIC ACID 1MG TABLET PO SCH (09:30)
[2020-02-06] MEDS: DEXAMETHASONE 10 MG/ML VIAL IV SCH (09:30)
[2020-02-06] MEDS: DOCUSATE SODIUM SUGAR FREE 100MG/10ML UDC NG SCH (09:30)
[2020-02-06] MEDS: MICONAZOLE NITRATE 2% OINT 71GM TOP SCH ×2 (09:31→21:19)
[2020-02-06] MEDS: DEXTROSE 5% WATER 1,000 ML IV SCH (13:20)
[2020-02-06] MEDS ORDERED: ALBUMIN HUMAN 25GM/100ML (25%) IV SCH (13:30)
[2020-02-06] MEDS ORDERED: REMDESIVIR 200 MG in SODIUM CHLORIDE 0.9% 250 ML IV SCH (16:00)
[2020-02-06] MEDS: ENOXAPARIN 40MG/0.4ML SYR SUBCUT SCH (21:19)
[2020-02-07] VITALS (91 sets, daily range): BP systolic 90–140; BP diastolic 44–110
[2020-02-07] MEDS: IPRATROPIUM/ALBUTEROL 0.5-3(2.5)MG/3ML NEB HHN SCH ×6 (00:20→20:40)
[2020-02-07] MEDS: FENTANYL CITRATE/PF 1,000 MCG in SODIUM CHLORIDE 0.9% 80 ML IV PRN ×2 (02:20→23:12)
[2020-02-07] MEDS: MIDAZOLAM HCL 100 MG in DEXT 5% WATER 80 ML IV PRN ×2 (02:20→19:55)
[2020-02-07] MEDS: DEXTROSE 5% WATER 1,000 ML IV SCH (04:59)
[2020-02-07 05:46] LABS: BASOPHILS % 0.3 % (0.0-2.0); EOSINOPHILS % 0.2 % (0.0-5.0); HEMATOCRIT. 26.8 % (36.0-48.0); HEMOGLOBIN. 8.8 g/dL (12.0-16.0); LYMPHOCYTES % 13.4 % (20.0-50.0); MEAN CORPUSCULAR HEMOGLOBIN 29.8 pg (28.0-32.0); MEAN CORPUSCULAR VOLUME 90.6 fL (81.0-99.0); MEAN PLATELET VOLUME 9.9 fl (7.4-10.4); MONOCYTES % 5.2 % (2.0-8.0); NEUTROPHILS % 80.9 % (40.0-76.0); PLATELET 153 x1000/uL (130-400); RED BLOOD CELL COUNT 2.95 mill/uL (4.2-5.4); RED CELL DISTRIBUTION WIDTH 16.4 % (11.6-14.6)
[2020-02-07 05:56] LABS: CHLORIDE 107 mEq/L (98-107)
[2020-02-07 09:04] LABS: BG BASE EXCESS 0.6 mmol/L (-2.0-2.0); BG CARBOXYHEMOGLOBIN 0.1 % (0.5-1.5); BG DEOXYHEMOGLOBIN 5.6 % (0.0-5.0); BG FRACTION INSPIRED OXYGEN 60; BG HCO3 ACT 24.3 mmol/L (22.0-26.0); BG METHEMOGLOBIN 0.2 % (0.0-1.5); BG OXYGEN SATURATION 94.4 % (92.0-98.5); BG OXYHEMOGLOBIN 94.1 % (94.0-97.0); BG PCO2 35.3 mmHg (35.0-45.0); BG PH 7.455 (7.350-7.450); BG PO2 69.7 mmHg (75.0-100.0); BG SAMPLE SITE RIGHT RADIAL; BG TIDAL VOLUME(mL) 500 mL; BG TOTAL HEMOGLOBIN 10.5 g/dL (12.0-18.0); BG VENT MODE VENT - A/C; BG VENT RATE 12 set
[2020-02-07] MEDS: PANTOPRAZOLE SODIUM 40 MG/VIAL IV SCH (10:25)
[2020-02-07] MEDS: DEXAMETHASONE 4MG/ML 1ML VIAL IV SCH (10:25)
[2020-02-07] MEDS: DOCUSATE SODIUM SUGAR FREE 100MG/10ML UDC NG SCH (10:25)
[2020-02-07] MEDS: THIAMINE HCL 100MG TABLET PO SCH (10:25)
[2020-02-07] MEDS: CARVEDILOL 3.125 MG TABLET PO SCH ×2 (10:25→21:00)
[2020-02-07] MEDS: MICONAZOLE NITRATE 2% OINT 71GM TOP SCH ×2 (10:26→20:19)
[2020-02-07] MEDS: FOLIC ACID 1MG TABLET PO SCH (10:26)
[2020-02-07] MEDS: REMDESIVIR 100 MG in SODIUM CHLORIDE 0.9% 250 ML IV SCH (16:42)
[2020-02-07] MEDS: ENOXAPARIN 40MG/0.4ML SYR SUBCUT SCH (20:19)
[2020-02-08] VITALS (96 sets, daily range): BP systolic 87–150; BP diastolic 45–105
[2020-02-08] MEDS: IPRATROPIUM/ALBUTEROL 0.5-3(2.5)MG/3ML NEB HHN SCH ×6 (00:10→21:05)
[2020-02-08 05:40] LABS: BASOPHILS % 0.2 % (0.0-2.0); EOSINOPHILS % 0.4 % (0.0-5.0); HEMATOCRIT. 29.8 % (36.0-48.0); HEMOGLOBIN. 9.7 g/dL (12.0-16.0); MEAN CORPUSCULAR HEMOGLOBIN 29.8 pg (28.0-32.0); MEAN CORPUSCULAR VOLUME 91.4 fL (81.0-99.0); MEAN PLATELET VOLUME 10.3 fl (7.4-10.4); MONOCYTES % 4.5 % (2.0-8.0); NEUTROPHILS % 81.9 % (40.0-76.0); PLATELET 194 x1000/uL (130-400); RED BLOOD CELL COUNT 3.26 mill/uL (4.2-5.4); RED CELL DISTRIBUTION WIDTH 16.5 % (11.6-14.6)
[2020-02-08 05:43] LABS: CHLORIDE 107 mEq/L (98-107)
[2020-02-08 05:56] LABS: PHOSPHORUS 3.8 mg/dL (2.5-4.9)
[2020-02-08] MEDS: CARVEDILOL 3.125 MG TABLET PO SCH ×2 (09:00→20:22)
[2020-02-08] MEDS: DOCUSATE SODIUM SUGAR FREE 100MG/10ML UDC NG SCH (09:25)
[2020-02-08] MEDS: PANTOPRAZOLE SODIUM 40 MG/VIAL IV SCH (09:25)
[2020-02-08] MEDS: THIAMINE HCL 100MG TABLET PO SCH (09:26)
[2020-02-08] MEDS: MICONAZOLE NITRATE 2% OINT 71GM TOP SCH ×2 (09:26→20:22)
[2020-02-08] MEDS: FOLIC ACID 1MG TABLET PO SCH (09:26)
[2020-02-08 09:35] LABS: BG BASE EXCESS 0.9 mmol/L (-2.0-2.0); BG DEOXYHEMOGLOBIN 6.8 % (0.0-5.0); BG FRACTION INSPIRED OXYGEN 60; BG HCO3 ACT 24.9 mmol/L (22.0-26.0); BG METHEMOGLOBIN 0.2 % (0.0-1.5); BG OXYGEN SATURATION 93.2 % (92.0-98.5); BG PCO2 37.1 mmHg (35.0-45.0); BG PH 7.444 (7.350-7.450); BG PO2 68.1 mmHg (75.0-100.0); BG SAMPLE SITE RIGHT RADIAL; BG TIDAL VOLUME(mL) 500 mL; BG TOTAL HEMOGLOBIN 10.1 g/dL (12.0-18.0); BG VENT MODE VENT- PRVC; BG VENT RATE 12 set
[2020-02-08] MEDS: DEXAMETHASONE 4MG/ML 1ML VIAL IV SCH (10:02)
[2020-02-08] MEDS: ALBUMIN HUMAN 25GM/100ML (25%) IV SCH ×2 (11:51→17:11)
[2020-02-08] MEDS: FENTANYL CITRATE/PF 1,000 MCG in SODIUM CHLORIDE 0.9% 80 ML IV PRN (17:08)
[2020-02-08] MEDS: REMDESIVIR 100 MG in SODIUM CHLORIDE 0.9% 250 ML IV SCH (17:11)
[2020-02-08] MEDS: ENOXAPARIN 40MG/0.4ML SYR SUBCUT SCH (20:21)
[2020-02-09] VITALS (96 sets, daily range): BP systolic 102–198; BP diastolic 59–110
[2020-02-09] MEDS: IPRATROPIUM/ALBUTEROL 0.5-3(2.5)MG/3ML NEB HHN SCH ×6 (00:25→20:55)
[2020-02-09] MEDS: FENTANYL CITRATE/PF 1,000 MCG in SODIUM CHLORIDE 0.9% 80 ML IV PRN (01:33)
[2020-02-09] MEDS: MIDAZOLAM HCL 100 MG in DEXT 5% WATER 80 ML IV PRN (01:34)
[2020-02-09 05:43] LABS: BASOPHILS % 0.3 % (0.0-2.0); EOSINOPHILS % 0.2 % (0.0-5.0); HEMATOCRIT. 27.4 % (36.0-48.0); LYMPHOCYTES % 13.8 % (20.0-50.0); MEAN CORPUSCULAR VOLUME 91.3 fL (81.0-99.0); MONOCYTES % 4.8 % (2.0-8.0); NEUTROPHILS % 80.9 % (40.0-76.0); PLATELET 191 x1000/uL (130-400); RED CELL DISTRIBUTION WIDTH 17.1 % (11.6-14.6)
[2020-02-09 05:46] LABS: CHLORIDE 108 mEq/L (98-107)
[2020-02-09] MEDS: FOLIC ACID 1MG TABLET PO SCH (09:04)
[2020-02-09] MEDS: THIAMINE HCL 100MG TABLET PO SCH (09:04)
[2020-02-09] MEDS: CARVEDILOL 3.125 MG TABLET PO SCH ×2 (09:04→20:00)
[2020-02-09] MEDS: DOCUSATE SODIUM SUGAR FREE 100MG/10ML UDC NG SCH (09:04)
[2020-02-09] MEDS: PANTOPRAZOLE SODIUM 40 MG/VIAL IV SCH (09:04)
[2020-02-09] MEDS: MICONAZOLE NITRATE 2% OINT 71GM TOP SCH ×2 (09:05→20:01)
[2020-02-09 09:32] LABS: BG BASE EXCESS -0.7 mmol/L (-2.0-2.0); BG CARBOXYHEMOGLOBIN 0.3 % (0.5-1.5); BG DEOXYHEMOGLOBIN 7.2 % (0.0-5.0); BG FRACTION INSPIRED OXYGEN 60; BG HCO3 ACT 22.8 mmol/L (22.0-26.0); BG METHEMOGLOBIN 0.2 % (0.0-1.5); BG OXYGEN SATURATION 92.8 % (92.0-98.5); BG OXYHEMOGLOBIN 92.3 % (94.0-97.0); BG PCO2 33.4 mmHg (35.0-45.0); BG PH 7.453 (7.350-7.450); BG PO2 65.4 mmHg (75.0-100.0); BG PRESSURE SUPPORT 12; BG SAMPLE SITE RIGHT RADIAL; BG TIDAL VOLUME(mL) 500 mL; BG TOTAL HEMOGLOBIN 10.3 g/dL (12.0-18.0); BG VENT MODE VENT - SIMV; BG VENT RATE 8 set
[2020-02-09 14:37] LABS: BG BASE EXCESS 3.5 mmol/L (-2.0-2.0); BG DEOXYHEMOGLOBIN 8.6 % (0.0-5.0); BG FRACTION INSPIRED OXYGEN 50; BG HCO3 ACT 26.3 mmol/L (22.0-26.0); BG METHEMOGLOBIN 0.2 % (0.0-1.5); BG OXYGEN SATURATION 91.4 % (92.0-98.5); BG OXYHEMOGLOBIN 91.2 % (94.0-97.0); BG PCO2 33.4 mmHg (35.0-45.0); BG PH 7.514 (7.350-7.450); BG PO2 58.5 mmHg (75.0-100.0); BG PRESSURE SUPPORT 8; BG SAMPLE SITE RIGHT RADIAL; BG TOTAL HEMOGLOBIN 10.8 g/dL (12.0-18.0); BG VENT MODE VENT - CPAP
[2020-02-09] MEDS: REMDESIVIR 100 MG in SODIUM CHLORIDE 0.9% 250 ML IV SCH (15:42)
[2020-02-09] MEDS: ENOXAPARIN 40MG/0.4ML SYR SUBCUT SCH (20:01)
[2020-02-10] VITALS (80 sets, daily range): BP systolic 129–181; BP diastolic 74–113
[2020-02-10] MEDS: IPRATROPIUM/ALBUTEROL 0.5-3(2.5)MG/3ML NEB HHN SCH ×6 (00:28→20:00)
[2020-02-10 05:20] LABS: BASOPHILS % 0.4 % (0.0-2.0); EOSINOPHILS % 0.5 % (0.0-5.0); HEMOGLOBIN. 10.9 g/dL (12.0-16.0); LYMPHOCYTES % 10.7 % (20.0-50.0); MEAN CORPUSCULAR HEMOGLOBIN 30.1 pg (28.0-32.0); MEAN CORPUSCULAR VOLUME 90.8 fL (81.0-99.0); MEAN PLATELET VOLUME 9.7 fl (7.4-10.4); MONOCYTES % 4.8 % (2.0-8.0); NEUTROPHILS % 83.6 % (40.0-76.0); PLATELET 261 x1000/uL (130-400); RED BLOOD CELL COUNT 3.64 mill/uL (4.2-5.4)
[2020-02-10 05:23] LABS: CHLORIDE 108 mEq/L (98-107)
[2020-02-10 05:30] LABS: PHOSPHORUS 3.3 mg/dL (2.5-4.9)
[2020-02-10] MEDS: THIAMINE HCL 100MG TABLET PO SCH (08:25)
[2020-02-10] MEDS: PANTOPRAZOLE SODIUM 40 MG/VIAL IV SCH (08:25)
[2020-02-10] MEDS: FOLIC ACID 1MG TABLET PO SCH (08:25)
[2020-02-10] MEDS: DOCUSATE SODIUM SUGAR FREE 100MG/10ML UDC NG SCH (08:25)
[2020-02-10] MEDS: CARVEDILOL 3.125 MG TABLET PO SCH (08:25)
[2020-02-10] MEDS: MICONAZOLE NITRATE 2% OINT 71GM TOP SCH ×2 (08:25→21:18)
[2020-02-10 12:56] LABS: SODIUM URINE RANDOM 76 mEq/L
[2020-02-10] MEDS ORDERED: POTASSIUM CHLORIDE 20MEQ/PACKET PO NR (13:45)
[2020-02-10] MEDS: REMDESIVIR 100 MG in SODIUM CHLORIDE 0.9% 250 ML IV SCH (15:49)
[2020-02-10] MEDS: ENOXAPARIN 40MG/0.4ML SYR SUBCUT SCH (21:17)
[2020-02-10] MEDS: CARVEDILOL 6.25 MG TABLET PO SCH (21:18)
[2020-02-11] VITALS (7 sets, daily range): BP systolic 122–164; BP diastolic 68–90
[2020-02-11] MEDS: IPRATROPIUM/ALBUTEROL 0.5-3(2.5)MG/3ML NEB HHN SCH ×2 (04:00)
[2020-02-11 06:59] LABS: BASOPHILS % 0.9 % (0.0-2.0); EOSINOPHILS % 0.8 % (0.0-5.0); HEMATOCRIT. 32.4 % (36.0-48.0); HEMOGLOBIN. 10.8 g/dL (12.0-16.0); LYMPHOCYTES % 10.4 % (20.0-50.0); MEAN CORPUSCULAR HEMOGLOBIN 30.4 pg (28.0-32.0); MEAN CORPUSCULAR VOLUME 91.6 fL (81.0-99.0); MEAN PLATELET VOLUME 9.2 fl (7.4-10.4); MONOCYTES % 4.5 % (2.0-8.0); NEUTROPHILS % 83.4 % (40.0-76.0); PLATELET 300 x1000/uL (130-400); RED BLOOD CELL COUNT 3.54 mill/uL (4.2-5.4); RED CELL DISTRIBUTION WIDTH 17.2 % (11.6-14.6)
[2020-02-11 07:25] LABS: CHLORIDE 112 mEq/L (98-107)
[2020-02-11 07:31] LABS: PHOSPHORUS 3.8 mg/dL (2.5-4.9)
[2020-02-11] MEDS: CARVEDILOL 6.25 MG TABLET PO SCH (08:29)
[2020-02-11] MEDS: FOLIC ACID 1MG TABLET PO SCH (08:29)
[2020-02-11] MEDS: PANTOPRAZOLE SODIUM 40 MG/VIAL IV SCH (08:29)
[2020-02-11] MEDS: THIAMINE HCL 100MG TABLET PO SCH (08:29)
[2020-02-11] MEDS: DOCUSATE SODIUM SUGAR FREE 100MG/10ML UDC NG SCH (08:32)
[2020-02-11] MEDS: MICONAZOLE NITRATE 2% OINT 71GM TOP SCH ×2 (08:35→20:26)
[2020-02-11] MEDS: CLONIDINE 0.1MG TABLET PO PRN (17:51)
[2020-02-11] MEDS: CARVEDILOL 12.5MG TABLET PO SCH (20:21)
[2020-02-11] MEDS: ACETAMINOPHEN 325MG TABLET PO PRN (20:24)
[2020-02-11] MEDS: ENOXAPARIN 40MG/0.4ML SYR SUBCUT SCH (20:24)
[2020-02-12 04:00] VITALS: BP 155/62
[2020-02-12 05:39] LABS: CHLORIDE 112 mEq/L (98-107)
[2020-02-12 06:13] LABS: BASOPHILS % 0.8 % (0.0-2.0); EOSINOPHILS % 0.7 % (0.0-5.0); HEMATOCRIT. 32.2 % (36.0-48.0); HEMOGLOBIN. 10.8 g/dL (12.0-16.0); LYMPHOCYTES % 13.2 % (20.0-50.0); MEAN CORPUSCULAR HEMOGLOBIN 30.7 pg (28.0-32.0); MEAN CORPUSCULAR VOLUME 91.3 fL (81.0-99.0); MEAN PLATELET VOLUME 9.4 fl (7.4-10.4); MONOCYTES % 5.3 % (2.0-8.0); PLATELET 300 x1000/uL (130-400); RED BLOOD CELL COUNT 3.53 mill/uL (4.2-5.4); RED CELL DISTRIBUTION WIDTH 17.6 % (11.6-14.6)
[2020-02-12 08:01] VITALS: BP 156/84
[2020-02-12] MEDS: DOCUSATE SODIUM SUGAR FREE 100MG/10ML UDC NG SCH ×2 (09:00→09:13)
[2020-02-12] MEDS: PANTOPRAZOLE SODIUM 40 MG/VIAL IV SCH (09:13)
[2020-02-12] MEDS: CARVEDILOL 12.5MG TABLET PO SCH ×2 (09:13→20:18)
[2020-02-12] MEDS: FOLIC ACID 1MG TABLET PO SCH (09:13)
[2020-02-12] MEDS: THIAMINE HCL 100MG TABLET PO SCH (09:13)
[2020-02-12] MEDS: MICONAZOLE NITRATE 2% OINT 71GM TOP SCH ×2 (09:17→20:20)
[2020-02-12 12:00] VITALS: BP 144/75
[2020-02-12 12:39] LABS: CLARITY URINE CLEAR (CLEAR); COLOR URINE YELLOW (YELLOW); KETONES URINE NEGATIVE (NEGATIVE); LEUKOCYTE ESTERASE URINE TRACE (NEGATIVE); NITRITE URINE NEGATIVE (NEGATIVE); OCCULT BLOOD URINE NEGATIVE (NEGATIVE); PROTEIN URINE NEGATIVE (NEGATIVE); SPECIFIC GRAVITY URINE 1.013 (1.005-1.030)
[2020-02-12 12:51] LABS: SODIUM URINE RANDOM 135 mEq/L
[2020-02-12 16:00] VITALS: BP 159/86
[2020-02-12] MEDS: ENOXAPARIN 40MG/0.4ML SYR SUBCUT SCH (20:18)
[2020-02-12 20:25] VITALS: BP 149/77
[2020-02-13 00:19] VITALS: BP 144/78
[2020-02-13 04:00] VITALS: BP 152/79
[2020-02-13] MEDS: ACETAMINOPHEN 325MG TABLET PO PRN (04:11)
[2020-02-13 08:00] VITALS: BP 160/83
[2020-02-13] MEDS: CARVEDILOL 12.5MG TABLET PO SCH (08:54)
[2020-02-13] MEDS: PANTOPRAZOLE SODIUM 40 MG/VIAL IV SCH (08:54)
[2020-02-13] MEDS: FOLIC ACID 1MG TABLET PO SCH (08:54)
[2020-02-13] MEDS: THIAMINE HCL 100MG TABLET PO SCH (08:54)
[2020-02-13] MEDS: DOCUSATE SODIUM SUGAR FREE 100MG/10ML UDC NG SCH (09:00)
[2020-02-13] MEDS: MICONAZOLE NITRATE 2% OINT 71GM TOP SCH ×2 (09:11→20:41)
[2020-02-13 11:16] LABS: BG BASE EXCESS 1.3 mmol/L (-2.0-2.0); BG CARBOXYHEMOGLOBIN 0.5 % (0.5-1.5); BG DEOXYHEMOGLOBIN 14.3 % (0.0-5.0); BG FRACTION INSPIRED OXYGEN 21; BG HCO3 ACT 24.9 mmol/L (22.0-26.0); BG METHEMOGLOBIN 0.4 % (0.0-1.5); BG OXYGEN SATURATION 85.6 % (92.0-98.5); BG OXYHEMOGLOBIN 84.8 % (94.0-97.0); BG PCO2 35.6 mmHg (35.0-45.0); BG PH 7.462 (7.350-7.450); BG PO2 49.8 mmHg (75.0-100.0); BG SAMPLE SITE LEFT RADIAL; BG TOTAL HEMOGLOBIN 11.2 g/dL (12.0-18.0); BG VENT MODE ROOM AIR
[2020-02-13 12:00] VITALS: BP 166/91
[2020-02-13 16:00] VITALS: BP 148/68
[2020-02-13 20:00] VITALS: BP 162/85
[2020-02-14] VITALS: BP 140/84
[2020-02-14] MEDS: ENOXAPARIN 40MG/0.4ML SYR SUBCUT SCH ×2 (00:40→20:42)
[2020-02-14] MEDS: CARVEDILOL 12.5MG TABLET PO SCH ×3 (00:40→20:42)
[2020-02-14 04:00] VITALS: BP 169/95
[2020-02-14] MEDS: CLONIDINE 0.1MG TABLET PO PRN ×3 (07:02→20:42)
[2020-02-14] MEDS: ACETAMINOPHEN 325MG TABLET PO PRN (07:02)
[2020-02-14 08:00] VITALS: BP 165/91
[2020-02-14] MEDS: THIAMINE HCL 100MG TABLET PO SCH (08:50)
[2020-02-14] MEDS: FOLIC ACID 1MG TABLET PO SCH (08:50)
[2020-02-14] MEDS: PANTOPRAZOLE SODIUM 40 MG/VIAL IV SCH (08:51)
[2020-02-14] MEDS: MICONAZOLE NITRATE 2% OINT 71GM TOP SCH ×2 (08:51→20:44)
[2020-02-14] MEDS: DOCUSATE SODIUM SUGAR FREE 100MG/10ML UDC NG SCH (08:51)
[2020-02-14 12:00] VITALS: BP 126/72
[2020-02-14 16:00] VITALS: BP 160/78
[2020-02-14 20:00] VITALS: BP 170/84
[2020-02-15] VITALS (7 sets, daily range): BP systolic 136–160; BP diastolic 63–81
[2020-02-15] MEDS: ACETAMINOPHEN 325MG TABLET PO PRN ×3 (00:10→20:11)
[2020-02-15] MEDS: DOCUSATE SODIUM SUGAR FREE 100MG/10ML UDC NG SCH (09:16)
[2020-02-15] MEDS: PANTOPRAZOLE SODIUM 40 MG/VIAL IV SCH (09:16)
[2020-02-15] MEDS: THIAMINE HCL 100MG TABLET PO SCH (09:16)
[2020-02-15] MEDS: FOLIC ACID 1MG TABLET PO SCH (09:17)
[2020-02-15] MEDS: CARVEDILOL 12.5MG TABLET PO SCH ×2 (09:17→20:10)
[2020-02-15] MEDS: MICONAZOLE NITRATE 2% OINT 71GM TOP SCH ×2 (09:19→20:58)
[2020-02-15] MEDS: ENOXAPARIN 40MG/0.4ML SYR SUBCUT SCH (20:11)
[2020-02-16 04:00] VITALS: BP 188/96
[2020-02-16] MEDS: DOCUSATE SODIUM SUGAR FREE 100MG/10ML UDC NG SCH (08:12)
[2020-02-16 08:30] VITALS: BP 158/79
[2020-02-16] MEDS: MICONAZOLE NITRATE 2% OINT 71GM TOP SCH ×2 (09:00→21:02)
[2020-02-16] MEDS: PANTOPRAZOLE SODIUM 40 MG/VIAL IV SCH (09:04)
[2020-02-16] MEDS: FOLIC ACID 1MG TABLET PO SCH (09:05)
[2020-02-16] MEDS: CARVEDILOL 12.5MG TABLET PO SCH ×2 (09:05→21:01)
[2020-02-16] MEDS: THIAMINE HCL 100MG TABLET PO SCH (09:05)
[2020-02-16 12:00] VITALS: BP 150/48
[2020-02-16 15:59] VITALS: BP 159/83
[2020-02-16 20:00] VITALS: BP 168/87
[2020-02-16] MEDS: ENOXAPARIN 40MG/0.4ML SYR SUBCUT SCH (21:02)
[2020-02-17] VITALS (7 sets, daily range): BP systolic 128–168; BP diastolic 79–87
[2020-02-17] MEDS: MICONAZOLE NITRATE 2% OINT 71GM TOP SCH ×2 (08:00→21:11)
[2020-02-17] MEDS: PANTOPRAZOLE SODIUM 40 MG/VIAL IV SCH (08:05)
[2020-02-17] MEDS: THIAMINE HCL 100MG TABLET PO SCH (08:05)
[2020-02-17] MEDS: FOLIC ACID 1MG TABLET PO SCH (08:05)
[2020-02-17] MEDS: DOCUSATE SODIUM SUGAR FREE 100MG/10ML UDC NG SCH (08:07)
[2020-02-17] MEDS: CLONIDINE 0.1MG TABLET PO PRN (08:09)
[2020-02-17] MEDS: CARVEDILOL 12.5MG TABLET PO SCH ×2 (08:09→21:10)
[2020-02-17] MEDS: ENOXAPARIN 40MG/0.4ML SYR SUBCUT SCH (21:11)
[2020-02-18] VITALS (8 sets, daily range): BP systolic 137–164; BP diastolic 72–81
[2020-02-18] MEDS: FOLIC ACID 1MG TABLET PO SCH (09:39)
[2020-02-18] MEDS: PANTOPRAZOLE SODIUM 40 MG/VIAL IV SCH (09:39)
[2020-02-18] MEDS: THIAMINE HCL 100MG TABLET PO SCH (09:39)
[2020-02-18] MEDS: DOCUSATE SODIUM SUGAR FREE 100MG/10ML UDC NG SCH (09:39)
[2020-02-18] MEDS: MICONAZOLE NITRATE 2% OINT 71GM TOP SCH (09:40)
[2020-02-18] MEDS: CARVEDILOL 12.5MG TABLET PO SCH ×2 (09:42→19:49)
[2020-02-18] MEDS: CLONIDINE 0.1MG TABLET PO PRN (19:49)
== END 2020-02-18 20:25 | disposition hospice, home (50) | DRG 720 ==
LOC: ER 19:13 → 7WST 22:29 → ENRESERV 23:03 → MICUSO 01-28 07:38 → 7WST 02-10 20:15
PROVIDERS: ADMIT Internal Medicine; ATTEND Internal Medicine
PROC: 5A1955Z Respiratory Ventilation, Greater than 96 Consecutive Hours (ICD-10-PCS; principal; 2020-01-28)
PROC: 0BH17EZ Insertion of Endotracheal Airway into Trachea, Via Natural or Artificial Opening (ICD-10-PCS; 2020-01-28)
PROC: 06HY33Z Insertion of Infusion Device into Lower Vein, Percutaneous Approach (ICD-10-PCS; 2020-01-28)
PROC: 30233K1 Transfusion of Nonautologous Frozen Plasma into Peripheral Vein, Percutaneous Approach (ICD-10-PCS; 2020-02-01)
PROC: XW033E5 Introduction of Remdesivir Anti-infective into Peripheral Vein, Percutaneous Approach, New Technology Group 5 (ICD-10-PCS; 2020-02-06)
DX: A41.89 Other specified sepsis (principal); U07.1 COVID-19; R65.21 Severe sepsis with septic shock; N17.0 Acute kidney failure with tubular necrosis; J96.01 Acute respiratory failure with hypoxia; J12.89 Other viral pneumonia; C64.9 Malignant neoplasm of unspecified kidney, except renal pelvis; D68.59 Other primary thrombophilia; E43 Unspecified severe protein-calorie malnutrition; E87.1 Hypo-osmolality and hyponatremia; E87.5 Hyperkalemia; C78.02 Secondary malignant neoplasm of left lung; E78.1 Pure hyperglyceridemia; D72.810 Lymphocytopenia; E78.5 Hyperlipidemia, unspecified; D64.9 Anemia, unspecified; E83.39 Other disorders of phosphorus metabolism; R13.10 Dysphagia, unspecified; E87.4 Mixed disorder of acid-base balance; I10 Essential (primary) hypertension; R35.8 Other polyuria; E87.0 Hyperosmolality and hypernatremia; C78.01 Secondary malignant neoplasm of right lung; C78.89 Secondary malignant neoplasm of other digestive organs; K72.00 Acute and subacute hepatic failure without coma; C78.7 Secondary malignant neoplasm of liver and intrahepatic bile duct; E87.6 Hypokalemia; Z66 Do not resuscitate; Z92.21 Personal history of antineoplastic chemotherapy; Z78.1 Physical restraint status; Z82.49 Family history of ischemic heart disease and other diseases of the circulatory system; Z68.28 Body mass index [BMI] 28.0-28.9, adult
CPT/HCPCS: 36415; 36600; 71045; 71250; 74176; 80048; 80053; 80061; 80305; 81003; 82105; 82375; 82533; 82728; 82805; 82962; 83605; 83615; 83735; 83880; 83930; 83935; 84100; 84132; 84295; 84300; 84439; 84443; 84484; 85025; 85379; 85384; 86140; 86705; 86709; 86803; 86850; 86870; 86900; 86927; 87070; 87340; 92610; 93005; 94003; 94640; 99291; C9113; J0456; J1100; J1650; J1815; J2060; J2185; J2250; J2270; J2370; J2704; J3010; J3490; J7030; J7040; J7050; J7060; J7070; P9017; P9047; Q9957; U0003-CS